=== PATIENT | female | born 1970 | race Caucasian/White ===

== ENCOUNTER 2020-03-20 12:09 | Emergency (ER) | payer OTHER ==
[2020-03-20] MEDS ORDERED: OXYCODONE HCL5 MG PO (15:30)
[2020-03-20] MEDS ORDERED: ZOFRAN ODT 4 MG4 MG PO (15:49)
== END 2020-03-20 15:55 | disposition home or self-care (01) ==
LOC: ER1 12:09
DX: T23.261A Burn of second degree of back of right hand, initial encounter (principal); T31.0 Burns involving less than 10% of body surface; G89.29 Other chronic pain; Z79.891 Long term (current) use of opiate analgesic; X10.2XXA Contact with fats and cooking oils, initial encounter; Y92.009 Unspecified place in unspecified non-institutional (private) residence as the place of occurrence of the external cause; Z23 Encounter for immunization
CPT/HCPCS: 90471; 90715; 96374; 96375; 99283; J1885; J2270; J2405

== ENCOUNTER → 2020-05-14 | Outpatient (CLI) | payer OTHER ==
[~2020-05-14] MED LIST: OMNICEF 300 MG300 MG PO; OXYCODONE HCL5 MG PO; ZOFRAN ODT 4 MG4 MG PO
== END ==
LOC: EXRD 05-06 11:00
DX: E04.2 Nontoxic multinodular goiter (principal)
CPT/HCPCS: 76536

== ENCOUNTER 2020-06-09 13:21 | Emergency (ER) | payer OTHER ==
[~2020-06-09 13:21] MED LIST changes: -OMNICEF 300 MG300 MG PO
[2020-06-09 14:27] LABS: RED BLOOD COUNT 4.48 M/UL (4.00-5.10); WHITE BLOOD COUNT 5.7 K/UL (4.5-11.0)
[2020-06-09 14:54] LABS: BUN/CREATININE RATIO 26 (0-10)
[2020-06-09] MEDS ORDERED: OMNICEF 300 MG300 MG PO (16:20)
== END 2020-06-09 17:30 | disposition home or self-care (01) ==
LOC: ER1 13:21
PROVIDERS: Emergency Medicine
DX: U07.1 COVID-19 (principal); N39.0 Urinary tract infection, site not specified
CPT/HCPCS: 71045; 80053; 81001; 82550; 82553; 83605; 83874; 84484; 85025; 85379; 87086; 96365; 99284; J0696

== ENCOUNTER → 2020-07-29 | Outpatient (CLI) | payer OTHER ==
[~2020-07-29] MED LIST changes: +OMNICEF 300 MG300 MG PO
== END ==
LOC: KOH-I 12:57
DX: M24.011 Loose body in right shoulder (principal)
CPT/HCPCS: 73221

== ENCOUNTER 2020-11-07 06:49 | Emergency (ER) | payer OTHER ==
[2020-11-07 07:44] LABS: RED BLOOD COUNT 4.21 M/UL (4.00-5.10); WHITE BLOOD COUNT 8.1 K/UL (4.5-11.0)
[2020-11-07 08:00] LABS: BUN/CREATININE RATIO 23 (0-10)
== END 2020-11-07 13:10 | disposition home or self-care (01) ==
LOC: ER1 06:49
PROVIDERS: Physician Assistant
DX: R10.84 Generalized abdominal pain (principal); R50.9 Fever, unspecified; Z86.16 Personal history of COVID-19
CPT/HCPCS: 51701; 74270; 80053; 81001; 83690; 84703; 85025; 96374; 96375; 99284; J1885; J2405; J7030; Q9963; Q9967

== ENCOUNTER 2021-01-15 13:48 | Emergency (ER) | payer OTHER ==
[2021-01-15 15:35] LABS: HEMOGLOBIN 13.8 gm/dl (12.3-15.3); RED BLOOD COUNT 4.34 M/UL (4.00-5.10); WHITE BLOOD COUNT 6.2 K/UL (4.5-11.0)
[2021-01-15 15:52] LABS: BUN/CREATININE RATIO 36 (0-10)
[2021-01-15] MEDS ORDERED: CYCLOBENZAPRINE10 MG PO (17:58)
[2021-01-15] MEDS ORDERED: IBUPROFEN800 MG PO (17:58)
== END 2021-01-15 18:30 | disposition home or self-care (01) ==
LOC: ER1 13:48
PROVIDERS: Physician Assistant
DX: R07.81 Pleurodynia (principal); Z20.822 Contact with and (suspected) exposure to COVID-19
CPT/HCPCS: 71111; 80053; 85025; 85379; 96374; 96375; 99284; J1885; J2270; Q9967; U0002

== ENCOUNTER → 2021-10-28 | Outpatient (CLI) | payer OTHER ==
[~2021-10-28] MED LIST changes: +CYCLOBENZAPRINE10 MG PO; +IBUPROFEN800 MG PO
== END ==
LOC: KOH-I 13:26
DX: R07.81 Pleurodynia (principal)
CPT/HCPCS: 71101